=== PATIENT | female | born 1955 | race Caucasian/White ===

== ENCOUNTER → 2017-06-07 | Outpatient (CLI) | payer OTHER ==
[~2017-06-07] MED LIST: ASPI325T PO; BUTA1CAP PO; COMMODE 3-IN-11 MIS; COQ-100C5 PO; DULC100C PO; ENOX40P SQ; FERR1TAB52 PO; GABA100C4 PO; GAVICHW CHEW; IMIT100T PO; LEVO50TA4 PO; LUTE40CA2 PO; MELA1TAB18 PO; NORC5TAB PO; PANT20TA2 PO; RANI150T PO; VENL75TA PO; WALKER WHEELS/F1 MIS
== END ==
LOC: CPRE 09:22
PROVIDERS: ATTEND Orthopaedic Surgery
DX: M16.12 Unilateral primary osteoarthritis, left hip (principal)

== ENCOUNTER 2017-06-12 07:00 | Inpatient (IN) | payer OTHER ==
[~2017-06-12] VITALS: Ht 154.9 cm; Wt 58.9 kg
[~2017-06-12 07:00] MED LIST changes: -ASPI325T PO; -BUTA1CAP PO; -COMMODE 3-IN-11 MIS; -ENOX40P SQ; -GAVICHW CHEW; -IMIT100T PO; -NORC5TAB PO; -RANI150T PO; -WALKER WHEELS/F1 MIS
[2017-06-19] MEDS ORDERED: LACTATED RINGER'S 1000 ML IV PRN (10:30)
[2017-06-19] MEDS ORDERED: SODIUM CHLORID 0.9% 500 ML IV PRN (10:30)
[2017-06-19] MEDS ORDERED: METOPROLOL TARTRATE 25 MG TAB PO PRN (10:30)
[2017-06-19] MEDS ORDERED: INSULIN HUMAN REGULAR 1,000 UNITS/10 ML VIAL SQ PRN (10:30)
[2017-06-19] MEDS ORDERED: POVIDONE IODINE 5% (ANTISEPSIS KIT) 4 APPLICATIONS EACH NARE PRN (10:30)
[2017-06-19] MEDS ORDERED: CHLORHEXIDINE GLUCONATE 2 % 1 PACK (2 CLOTHS) TOPICAL PRN (10:30)
[2017-06-19] MEDS ORDERED: VANCOMYCIN 1000 MG/NS 250 ML (for <70 kg) IV SCH ×2 (10:45)
[2017-06-19] MEDS ORDERED: ceFAZolin 2 GM PREMIX 50 ML IV SCH (10:45)
[2017-06-19] MEDS ORDERED: DEXAMETHASONE SOD PHOS 20 MG/5 ML VIAL IV SCH (10:45)
[2017-06-19] MEDS ORDERED: CHLORHEXIDINE GLUCONATE 4% SOLN 120 ML BTL TOPICAL SCH (10:45)
[2017-06-19] MEDS ORDERED: GAVICHW CHEW (10:56)
[2017-06-19] MEDS ORDERED: BUTA1CAP PO (10:56)
[2017-06-19] MEDS ORDERED: RANI150T PO (10:56)
[2017-06-19] MEDS ORDERED: IMIT100T PO (10:56)
[2017-06-19] MEDS ORDERED: PHENYLEPHRINE HCL 10 MG/ML VIAL IV ONE (12:00)
[2017-06-19] MEDS ORDERED: SODIUM CHLORIDE 0.9% IV SCH ×2 (12:00→16:00)
[2017-06-19] MEDS ORDERED: NEOSTIGMINE 3 MG/3 ML SYR IV ONE (12:00)
[2017-06-19] MEDS ORDERED: GLYCOPYRROLATE 1 MG/5 ML SYRINGE IV PUSH ONE (12:00)
[2017-06-19] MEDS ORDERED: LIDOCAINE HCL 1% PF 5 ML AMPULE OTHER ONE (12:00)
[2017-06-19] MEDS ORDERED: ePHEDrine/NS 25 MG/5 ML SYR IV ONE (12:00)
[2017-06-19] MEDS ORDERED: MIDAZOLAM HCL 2 MG/2 ML VIAL IV ONE (12:00)
[2017-06-19] MEDS ORDERED: TRANEXAMIC ACID IV SCH ×2 (12:00→16:00)
[2017-06-19] MEDS ORDERED: EXPAREL PERI-ARTICULAR INJECTION (TOTAL VOL. 60 ML) P-ARTICULR SCH ×2 (12:00)
[2017-06-19] MEDS ORDERED: PHENYLEPH/NS 1000 MCG/10 ML SYR IV ONE (12:00)
[2017-06-19] MEDS ORDERED: ROCURONIUM INJ 50 MG/5 ML SYRINGE IV PUSH ONE (12:00)
[2017-06-19] MEDS ORDERED: GENTAMICIN SULFATE 80 MG/2 ML VIAL ONE (12:14)
[2017-06-19] MEDS ORDERED: ACETAMINOPHEN 1000 MG/100 ML 100 ML IV ONE (12:46)
--- NOTE | 2017-06-19 15:11 | PD.OP ---
cc: Alfonso Salcedo MD Operative Report Date of Surgery: Jun 19, 2017 Preoperative Diagnosis: Left hip severe osteoarthritis Postoperative Diagnosis: Same Procedure: Left total hip arthroplasty Anesthesia: Gen. Surgeon: Alfonso Salcedo Product Test Engineer(s): REGIS Valerio The surgical procedure was assisted by my Advanced Registered Nurse Practitioner. My JIGGER CROWN POUNCING MACHINE OPERATOR presence was necessary throughout this case for the manipulation and positioning of the surgical extremity. My JIGGER CROWN POUNCING MACHINE OPERATOR was assisting me throughout the duration of this procedure. The skill set of an Advance Registered Nurse Practitioner was medically necessary to complete this procedure. During the surgical case, the surgical endoscopist was working at the back table and the Advance Registered Nurse Practitioner was directly assisting me. Operation and Findings: IMPLANT DESCRIPTION: 1. [place] Gription Cup, acetabular size 48. 2. [place] AltrX polyethylene, neutral. 4. [place] femoral stem size 8, no collar, standard offset. 5. Femoral head/neck ceramic, 32, +1. ESTIMATED BLOOD LOSS: 300 cc. JUSTIFICATION FOR PROCEDURE: The patient has end-stage osteoarthritis to the hip. There is an attached conservative measures pathway form in the chart that describes the nonoperative measures that were undertaken prior to consideration of surgical management. The patient understood the risks and benefits of surgical management. See my office notes for further details. PROCEDURE: The patient was brought back to the operative theatre. Adequate anesthesia was obtained. The patient received intravenous vancomycin and Ancef. The patient was carefully placed on the operative table. The lower extremity was prepped and draped in the usual sterile fashion. Fluoroscopic images were obtained. We made a standard anterior incision over the hip. We dissected through the TFL fascia, exposing the anterior capsule. Arthrotomy was performed in a T-shaped fashion. The capsule was tagged with a #2 FiberWire. End-stage arthritis was identified. Osteotomy was performed through the femoral neck exposing the acetabulum. Remnants of the labrum were resected and osteophytes were removed. We sequentially reamed the acetabulum. We trialed the hip and placed the final cup into position. This was done under fluoroscopic guidance to obtain the appropriate inclination and anteversion. A manhole cover was placed into the acetabular component. We used a 3 hole cup. However, when we placed the cup in to position it had excellent purchase and we decided not to place screws. We then placed the final polyethylene into position and confirmed that it was well seated. Capsular attachments on the calcar and the inner aspect of the greater trochanter were resected. On the proximal aspect of the femur we used a rongeur , box osteotome, canal finder, sequential broaches and lateralizing rasp. We calcar planed the proximal femur. We found proximally it was very tight including narrowing of the medial to lateral witdth. This was treated with further curettage proximally. There also was tightness distally by the end of the stem. We decided to place a ball-tipped guidewire distally and we sequentially reamed ultimately going up to a 9-1/2 reamer. This gave us very good positioning for the trial. We did calcar planed again. Then thoroughly irrigated the wound. We trialed the hip with the appropriate size stem. We placed the final stem in to position and trialed again. The hip was stable while it was externally rotated 70 degrees when the leg was lowered to the floor. The final head was applied, and final fluoroscopic images were obtained. The wound was thoroughly irrigated again. Interarticular injection of liposomal bupivacaine was given. The capsule was closed with #2 FiberWire and #1 Vicryl. The deep fascia was closed with a #2 Stratafix, followed by 2-0 Vicryl in the skin with a Dermabond dressing. Postop plan is to weight-bear as tolerated. DVT prophylaxis will be performed with Brennen, JENN ragland, early mobilization, and Lovenox followed by aspirin. Alfonso Salcedo MD Jun 19, 2017 15:11
[2017-06-19] MEDS ORDERED: ENOX40P SQ (15:13)
[2017-06-19] MEDS ORDERED: ASPI325T PO (15:13)
[2017-06-19] MEDS ORDERED: NORC5TAB PO (15:13)
[2017-06-19] MEDS ORDERED: NALOXONE HCL 0.4 MG/ML AMP IV PRN (15:15)
[2017-06-19] MEDS ORDERED: ALUMINUM/MAGNESIUM/SIMETH 30 ML CUP PO PRN (15:15)
[2017-06-19] MEDS ORDERED: Post-op Orders (for Pharmacy) MISC XX ONE (15:15)
[2017-06-19] MEDS ORDERED: SODIUM CHLORIDE 0.9% FLUSH 5 ML FLUSH IVF PRN (15:15)
[2017-06-19] MEDS ORDERED: MAGNESIUM HYDROXIDE SUSP 30 ML CUP PO PRN (15:15)
[2017-06-19] MEDS ORDERED: MORPHINE SULFATE 4 MG/ML INJ IV PUSH PRN (15:15)
[2017-06-19] MEDS ORDERED: diphenhydrAMINE HCL 50 MG/ML VIAL IV PRN (15:15)
[2017-06-19] MEDS ORDERED: BISACODYL 10 MG SUPP RECTAL PRN (15:15)
[2017-06-19] MEDS: SODIUM CHLOR 0.9% 1000 ML INJ 1,000 ML IV SCH ×2 (15:30→22:42)
[2017-06-19] MEDS ORDERED: DO NOT ADM ANY ANTICOAGULANT DRUGS PRN (15:31)
--- NOTE | 2017-06-19 15:45 | HHI.DCPOC ---
Discharge Care Plan Diagnosis: (1) Osteoarthritis of left hip (2) Status post total hip replacement, left Your Health Problems Are: Difficulty with ADL Goals to Promote Your Health * To prevent worsening of your condition and complications * To maintain your health at the optimal level Directions to Meet Your Goals Take your medications as prescribed Follow your dietary instruction Follow activity as directed Keep your appointments as scheduled Take your immunizations and boosters as scheduled If your symptoms worsen call your PCP, if no PCP go to Urgent Care Center or Emergency Room Smoking is Dangerous to Your Health. Avoid second hand smoke Call the 24-hour hour crisis hotline for domestic abuse at Mychal Alcala Jun 19, 2017 15:45
--- NOTE | 2017-06-19 15:47 | HHI.FF ---
Face to Face Verification Diagnosis: (1) Osteoarthritis of left hip (2) Status post total hip replacement, left Physical Therapy Gait training, Transfer training, bed to chair Hip: Total hip Right LE Weight Bearing: WB as tolerated Right LE Range of Motion: Active ROM Nursing Nursing: Jayshree teaching, Dressing changes Dressing Changes: Daily dressing change I have seen patient Olivia Santizo on 06/19/17. My clinical findings support the need for the requested home health care services because: Limited ability to care for self High risk of falls I certify that my clinical findings support that this patient is homebound because: Post-op weakness Unsteady gait/balance Mychal Alcala Jun 19, 2017 15:47
--- NOTE | 2017-06-19 15:47 | RADRPT ---
EXAM DATE/TIME: 06/19/2017 13:43 [facility] COMPARISON: No previous studies available for comparison. INDICATIONS : ORIF lt hip. MEDICAL HISTORY : None. SURGICAL HISTORY : None. ENCOUNTER: Initial ACUITY: 1 day PAIN SCORE: Non-responsive. LOCATION: Left Hip CONCLUSION: Fluoroscopic images during left hip arthroplasty. Jasmhid Lee MD on June 19, 2017 at 15:45 Board Certified Radiologist. This report was verified electronically.
[2017-06-19] MEDS ORDERED: COMMODE 3-IN-11 MIS (15:49)
[2017-06-19] MEDS ORDERED: WALKER WHEELS/F1 MIS (15:49)
[2017-06-19] MEDS ORDERED: *ONDANSETRON 4 MG VIAL PERIprocedural Use ONLY ONE (15:53)
--- NOTE | 2017-06-19 16:08 | PD.CONS ---
HPI Service [facility] Hospitalists Consult Requested By Primary Care Physician Valdemar Boogie MD, PhD Diagnoses: History of Present Illness Pt with OA admitted for Left JONE. She is seen in [facility] and stable from cardiopulmonary standpoint. She is awake and alert and following commands. She is having alot of nausea currently and is receiving some medications. She is otherwise not complaining of anything. Denies any cardiac or pulmonary disease processes. Review of Systems Other nausea Past Family Social History Past Medical History migraine gerd hypothyroidism OA depression. hx lap katharina Reported Medications Gaviscon (Aluminum Hydroxide-Mag Trisil) 80-14.2 mg Chew 2-4 Tab CHEW QID PRN Maximum 16 tabs/24 hrs Ranitidine (Ranitidine HCl) 150 Mg Tab 150 Mg PO DAILY Imitrex (Sumatriptan Succinate) 100 Mg Tab 100 Mg PO ONCE PRN If a satisfactory response has not been obtained at 2 hours, a second dose may be administered Fioricet (Qurdsqqxop-Ytojsthfyggxb-Hqhrswvt) 50-300-40 Mg Cap 1 Cap PO Q4H PRN Melatonin 10 Mg-1 Mg Tab 10 Mg PO HS PRN Gabapentin 100 Mg Cap 100 Mg PO HS Dulcolax Stool Softener (Docusate Sodium) 100 Mg Cap 300 Mg PO DAILY Lutein 40 Mg Cap 40 Mg PO DAILY Coq-10 Tr (Coenzyme Q10 (Ubidecarenone)) 100 Mg Cap 200 Mg PO DAILY Iron High-Potency (Ferrous Sulfate) 325 Mg (65 Mg Iron) Tab 65 Mg PO 3XWEEK Effexor (Venlafaxine HCl) 75 Mg Tab 75 Mg PO DAILY Levothyroxine (Levothyroxine Sodium) 50 Mcg Tab 50 Mcg PO DAILY Pantoprazole (Pantoprazole Sodium) 20 Mg Tab 20 Mg PO DAILY Allergies: Coded Allergies: iodine (Verified Allergy, Severe, swollen, 06/07/17) prednisone (Verified Allergy, Severe, rash, 06/07/17) povidone-iodine (Verified Allergy, Unknown, swelling and rash, 06/19/17) soap (Verified Allergy, Unknown, swelling and rash, 06/19/17) Family History NC Social History no etoh/tob Physical Exam Vital Signs nad oriented lying in pacu bed heart reg lung cta abds s/nt ext no lower ext edema Vital Signs Date Time Temp Pulse Resp B/P (MAP) Pulse Ox O2 Delivery O2 Flow Rate FiO2 06/19/17 11:00 98.7 73 18 116/68 (84) 100 Assessment and Plan Problem List: (1) Status post total hip replacement, left ICD Codes: Z96.642 - Presence of left artificial hip joint Status: Acute Plan: Pt s/p L JONE today 06/19 for OA Only c/o post op nausea. Currently stable from cardiopulmonary standpt. lovenox for dvt prophylaxis prn pain control with iv morphine and norco IS PT daily cont home medications pt says she wants to go home with hhc/pt at d/c (2) GERD (gastroesophageal reflux disease) ICD Codes: K21.9 - Gastro-esophageal reflux disease without esophagitis Status: Chronic (3) Hypothyroidism ICD Codes: E03.9 - Hypothyroidism, unspecified Status: Chronic (4) Depressed ICD Codes: F32.9 - Major depressive disorder, single episode, unspecified Status: Chronic Nabil Llamas MD Jun 19, 2017 16:08
--- NOTE | 2017-06-19 16:10 | RADRPT ---
EXAM DATE/TIME: 06/19/2017 15:27 [facility] COMPARISON: No previous studies available for comparison. INDICATIONS : Status post ORIF lt hip. MEDICAL HISTORY : None. SURGICAL HISTORY : None. ENCOUNTER: Subsequent ACUITY: 1 day PAIN SCORE: Non-responsive. LOCATION: Left Hip FINDINGS: Examination of the left hip was performed with AP Pelvis. Left total hip arthroplasty. Both the femor al and acetabular components are appropriately positioned. No fracture. CONCLUSION: Appropriate postoperative appearance of the left hip status post total arthroplasty. Héctor Barone MD on June 19, 2017 at 16:08 Board Certified Radiologist. This report was verified electronically.
[2017-06-19] MEDS ORDERED: *morphine SULFATE 8 MG/ML PERIprocedure ONLY ONE (16:25)
[2017-06-19] MEDS ORDERED: FIORICET PO PRN (16:30)
[2017-06-19] MEDS ORDERED: FERROUS SULFATE 325 MG (65 MG ELEMENTAL IRON) TAB PO SCH (18:00)
[2017-06-19 19:00] VITALS: BP 92/63; PULSE 72; RESP 12; TEMP 96.9; O2SAT 100
[2017-06-19] MEDS: GABAPENTIN 100 MG CAP PO SCH (20:13)
[2017-06-19] MEDS: SODIUM CHLORIDE 0.9% FLUSH 5 ML FLUSH IVF SCH (20:14)
[2017-06-19 20:37] VITALS: O2SAT 98
[2017-06-19] MEDS ORDERED: ZOLPIDEM TARTRATE 5 MG TAB PO PRN (21:00)
[2017-06-19] MEDS: ACETAMINOPHEN/HYDROcodone 325 MG/5 MG TAB PO PRN (21:01)
[2017-06-19] MEDS: ONDANSETRON HCL 4 MG/2 ML VIAL IVP PRN (22:42)
[2017-06-20] MEDS: SODIUM CHLOR 0.9% 1000 ML INJ 1,000 ML IV SCH ×2 (02:44→19:34)
[2017-06-20] MEDS: ACETAMINOPHEN/HYDROcodone 325 MG/5 MG TAB PO PRN ×4 (02:58→21:31)
[2017-06-20] MEDS: LEVOTHYROXINE SODIUM 50 MCG TAB PO SCH (05:09)
[2017-06-20] MEDS: ONDANSETRON HCL 4 MG/2 ML VIAL IVP PRN ×2 (05:10→11:39)
[2017-06-20 07:06] LABS: HEMATOCRIT 29.9 % (35.0-46.0); MEAN CELL VOLUME 95.1 FL (80.0-100.0); MEAN CORPUSCULAR HEMOGLOBIN 32.6 PG (27.0-34.0); MEAN CORPUSCULAR HGB CONC 34.3 % (32.0-36.0); PLATELET COUNT 122 TH/MM3 (150-450); RED BLOOD COUNT 3.14 MIL/MM3 (4.00-5.30); REVIEW FLAG FINAL; WHITE BLOOD COUNT 11.2 TH/MM3 (4.0-11.0)
[2017-06-20 07:37] VITALS: BP 97/48; PULSE 91; RESP 18; TEMP 98; O2SAT 99
[2017-06-20] MEDS ORDERED: DEXAMETHASONE SOD PHOS 20 MG/5 ML VIAL IV ONE (07:45)
[2017-06-20] MEDS: VENLAFAXINE HCL XR 75 MG CAP PO SCH (08:57)
[2017-06-20] MEDS: FAMOTIDINE 20 MG TAB PO SCH ×2 (08:58→19:34)
[2017-06-20] MEDS: PANTOPRAZOLE SOD 20 MG DELAYED RELEASE TAB PO SCH (09:00)
[2017-06-20] MEDS: SODIUM CHLORIDE 0.9% FLUSH 5 ML FLUSH IVF SCH ×2 (09:00→19:34)
[2017-06-20] MEDS: SUMAtriptan SUCCINATE 50 MG TAB PO PRN (09:08)
[2017-06-20 12:00] VITALS: BP 112/49; PULSE 98; RESP 18; TEMP 97.8; O2SAT 100
--- NOTE | 2017-06-20 12:01 | PD.ORT.PN ---
Subjective Post Op Day #: 1 Subjective Remarks Patient resting in bed with c/o severe Migraine. Patient has been nauseated and unable to ambulate secondary to her head pain. Requesting another dose of Migraine medication. Objective Vitals Vital Signs Date Time Temp Pulse Resp B/P (MAP) Pulse Ox O2 Delivery O2 Flow Rate FiO2 06/20/17 07:37 98.0 91 18 97/48 (64) 99 06/19/17 20:37 98 21 06/19/17 19:00 96.9 72 12 92/63 (73) 100 06/19/17 17:45 98.3 72 14 104/51 (68) 98 Room Air 06/19/17 16:45 71 14 108/51 (70) 100 Nasal Cannula 2 06/19/17 16:30 65 14 100/52 (68) 100 Nasal Cannula 3 06/19/17 16:15 61 14 99/55 (70) 99 Nasal Cannula 3 06/19/17 16:00 70 14 93/54 (67) 98 Nasal Cannula 3 06/19/17 15:45 72 14 105/54 (71) 98 Nasal Cannula 3 06/19/17 15:30 98.4 81 14 114/54 (74) 97 Nasal Cannula 3 I/O 06/19/17 06/19/17 06/19/17 06/20/17 06/20/17 06/20/17 07:00 15:00 23:00 07:00 15:00 23:00 Intake Total 50 ml 1700 ml 1690 ml Output Total 250 ml Balance 50 ml 1450 ml 1690 ml Intake Oral 290 ml IV Total 50 ml 200 ml 1400 ml Other 1500 ml Output Estimated Blood Loss 250 ml # Voids 2 # Bowel Movements 0 Result Diagram: 06/20/17 0616 Imaging Last 24 hours Impressions Hip and Pelvis X-Ray 06/19/17 1505 Signed Impressions: Service Date/Time: Monday, June 19, 2017 15:27 - CONCLUSION: Appropriate postoperative appearance of the left hip status post total arthroplasty. Héctor Barone MD Procedures Left JONE Objective Remarks Dressings changed with no drainage. Incision is well approximated. No redness or s/s of infection. Calf is soft and nontender. EHL/TA/G intact. 2+ pedal pulse. + SILT. Assessment & Plan Ortho Post Op Day #: 1 Problem List: Assessment and Plan POD #1: Left JONE 1. WBAT LLE 2. Lovenox followed by ASA for DVT prophylaxis 3. Ice to the left hip PRN 4. Anticipatory discharge home with home health on Saturday 5. F/U with Dr. Salcedo or REGIS Zaidi 6. 2nd dose of Immitrex for current Migraine. Mychal Alcala Jun 20, 2017 12:01
[2017-06-20] MEDS ORDERED: SUMAtriptan SUCCINATE 50 MG TAB PO ONE (12:15)
[2017-06-20] MEDS ORDERED: ENOXAPARIN SODIUM 40 MG/0.4 ML SYRINGE SQ SCH (14:30)
[2017-06-20 15:32] VITALS: BP 99/44; PULSE 87; RESP 18; TEMP 99.1; O2SAT 98
[2017-06-20 19:00] VITALS: BP 102/59; PULSE 75; RESP 17; TEMP 98.5; O2SAT 94
[2017-06-20] MEDS: GABAPENTIN 100 MG CAP PO SCH (19:34)
[2017-06-20] MEDS: DOCUSATE SODIUM 100 MG CAP PO SCH (19:34)
[2017-06-20] MEDS: MULTIVITAMINS/MINERALS THERAPEUTIC TAB PO SCH (19:34)
[2017-06-20 19:40] VITALS: O2SAT 98
[2017-06-21] VITALS: BP 93/50; PULSE 93; RESP 17; TEMP 98.5; O2SAT 97
[2017-06-21] MEDS: ACETAMINOPHEN/HYDROcodone 325 MG/5 MG TAB PO PRN ×2 (03:21→07:54)
[2017-06-21 04:00] VITALS: BP 93/48; PULSE 93; RESP 16; TEMP 98.5; O2SAT 98
[2017-06-21] MEDS: SUMAtriptan SUCCINATE 50 MG TAB PO PRN (04:59)
[2017-06-21] MEDS: LEVOTHYROXINE SODIUM 50 MCG TAB PO SCH (06:00)
[2017-06-21 06:19] LABS: HEMATOCRIT 27.7 % (35.0-46.0); MEAN CORPUSCULAR HEMOGLOBIN 32.6 PG (27.0-34.0); MEAN CORPUSCULAR HGB CONC 34.3 % (32.0-36.0); PLATELET COUNT 106 TH/MM3 (150-450); RED BLOOD COUNT 2.92 MIL/MM3 (4.00-5.30); RED CELL DISTRIBUTION WIDTH 12.8 % (11.6-17.2); REVIEW FLAG FINAL
[2017-06-21] MEDS: SODIUM CHLOR 0.9% 1000 ML INJ 1,000 ML IV SCH (07:05)
[2017-06-21] MEDS: FAMOTIDINE 20 MG TAB PO SCH (07:54)
[2017-06-21] MEDS: DOCUSATE SODIUM 100 MG CAP PO SCH (07:54)
[2017-06-21] MEDS: PANTOPRAZOLE SOD 20 MG DELAYED RELEASE TAB PO SCH (07:54)
[2017-06-21] MEDS: MULTIVITAMINS/MINERALS THERAPEUTIC TAB PO SCH (07:54)
[2017-06-21] MEDS: VENLAFAXINE HCL XR 75 MG CAP PO SCH (07:55)
[2017-06-21] MEDS: SODIUM CHLORIDE 0.9% FLUSH 5 ML FLUSH IVF SCH (07:55)
[2017-06-21 08:00] VITALS: BP 95/49; PULSE 81; RESP 18; TEMP 96.5; O2SAT 97
[2017-06-21 08:56] VITALS: RESP 16
[2017-06-21 09:20] VITALS: O2SAT 93
--- NOTE | 2017-06-25 17:41 | HHI.DS ---
Discharge Summary Admission Date Jun 19, 2017 at 09:58 Discharge Date: Jun 21, 2017 Admitting Diagnosis OA of the left hip Status post total hip replacement, left Diagnosis: (1) Status post total hip replacement, left Diagnosis: Principal ICD Codes: Z96.642 - Presence of left artificial hip joint Status: Acute (2) Osteoarthritis of left hip Diagnosis: Principal ICD Codes: M16.12 - Unilateral primary osteoarthritis, left hip Procedures Left JONE Brief History This is a 61 year old female patient with severe OA of the left hip CBC/BMP: 06/21/17 0551 PE at Discharge Dressings changed with no drainage. Incision is well approximated. No redness or s/s of infection. Calf is soft and nontender. EHL/TA/G intact. 2+ pedal pulse. + SILT. Hospital Course The patient was admitted to the hospital for severe OA of the left hip to have a left JONE. The patient's surgery went well without complication. The patient is WBAT on the LLE. The patient is on a regular diet. The patient was placed on Lovenox followed by ASA for DVT prophylaxis. The patient was discharged home with home health and will f/u in the office in 1-[address] Salcedo or REGIS Zaidi. Pt Condition on Discharge: Stable Discharge Disposition: Disch w/ Home Health Serv Discharge Instructions Diet Instructions: As Tolerated, No Restrictions Activities You Can Perform: Weight Bearing as Keegan Activities to Avoid: Strenuous Activity Follow up Referrals: Orthopedics with Alfonso Salcedo MD [facility]/ with [facility] New Medications: Aspirin (Aspirin) 325 Mg Tab 325 MG PO DAILY for Prevent Blood Clot, #30 TAB 0 Refills Start Aspirin after Lovenox is completed. Commode 3-in-1 (Commode 3-in-1) 1 Mis Mis EA .ROUTE DIRECTED, #1 0 Refills Enoxaparin Inj (Lovenox Inj) 40 Mg/0.4 Ml Syr 40 MG SQ DAILY for Blood Clot Prevention, #10 SYRINGE 0 Refills Start Aspirin after Lovenox is completed. Hydrocodone-Acetaminophen (Garland) 5-325 mg Tab 1-2 TAB PO Q4H PRN for PAIN, #60 TAB 0 Refills Walker with Front Wheels (Walker with Front Wheels) 1 Mis Mis EA .ROUTE DIRECTED, #1 0 Refills Continued Medications: Aluminum Hydroxide-Mag Trisil (Gaviscon) 80-14.2 mg Chew 2-4 TAB CHEW QID PRN for HEARTBURN, TAB 0 Refills Maximum 16 tabs/24 hrs Vsvqhhagjx-Adkwsujkcgyrp-Mpfzxeif (Fioricet) 50-300-40 Mg Cap 1 CAP PO Q4H PRN for HEADACHE, CAP 0 Refills Docusate Sodium (Dulcolax Stool Softener) 100 Mg Cap 300 MG PO DAILY for Prevent Constipation, #60 CAP 0 Refills Ferrous Sulfate (Iron High-Potency) 325 Mg (65 Mg Iron) Tab 65 MG PO 3XWEEK Gabapentin (Gabapentin) 100 Mg Cap 100 MG PO HS, #30 CAP 0 Refills Levothyroxine (Levothyroxine) 50 Mcg Tab 50 MCG PO DAILY for Thyroid, #30 TAB 0 Refills Lutein (Lutein) 40 Mg Cap 40 MG PO DAILY for Nutritional Supplement, CAP 0 Refills Melatonin (Melatonin) 10 Mg-1 Mg Tab 10 MG PO HS PRN for SLEEP, TAB 0 Refills Pantoprazole (Pantoprazole) 20 Mg Tab 20 MG PO DAILY for Reflux, #30 TAB 0 Refills Ranitidine (Ranitidine) 150 Mg Tab 150 MG PO DAILY for Heartburn Management, #30 TAB 0 Refills Sumatriptan (Imitrex) 100 Mg Tab 100 MG PO ONCE PRN for MIGRAINE HEADACHE, TAB 0 Refills If a satisfactory response has not been obtained at 2 hours, a second dose may be administered Venlafaxine (Effexor) 75 Mg Tab 75 MG PO DAILY, #30 TAB 0 Refills Discontinued Medications: Coenzyme Q10 (Ubidecarenone) (Coq-10 Tr) 100 Mg Cap 200 MG PO DAILY Mychal Alcala Jun 25, 2017 17:40
== END 2017-06-21 12:29 | disposition home health service (06) | DRG 470 ==
LOC: HSDI 06-19 09:58 → N06A 06-19 18:07
PROVIDERS: ADMIT Orthopaedic Surgery; ATTEND Orthopaedic Surgery
PROC: 0SRB04A Replacement of Left Hip Joint with Ceramic on Polyethylene Synthetic Substitute, Uncemented, Open Approach (ICD-10-PCS; principal; 2017-06-19 12:49)
DX: M16.12 Unilateral primary osteoarthritis, left hip (principal); R11.0 Nausea; G43.909 Migraine, unspecified, not intractable, without status migrainosus; F32.9 Major depressive disorder, single episode, unspecified; E03.9 Hypothyroidism, unspecified; K21.9 Gastro-esophageal reflux disease without esophagitis
CPT/HCPCS: 36415; 73502; 76000; 85027; 85610; 86850; 86900; 86901; 94150; C1713; C1776; C9290; J0131; J0690; J1100; J1580; J1650; J2250; J2270; J2370; J2405; J2710; J3010; J3370; J7030; J7050; J7120

== ENCOUNTER → 2017-06-18 | Outpatient (CLI) | payer OTHER ==
[~2017-06-18] MED LIST changes: +ASPI325T PO; +BUTA1CAP PO; +COMMODE 3-IN-11 MIS; +ENOX40P SQ; +GAVICHW CHEW; +IMIT100T PO; +NORC5TAB PO; +RANI150T PO; +WALKER WHEELS/F1 MIS
[2017-06-18 12:31] LABS: PROTHROMBIN TIME - PATIENT 10.7 SEC (9.8-11.6)
== END ==
LOC: CPRE 11:59
PROVIDERS: ATTEND Orthopaedic Surgery
DX: R79.1 Abnormal coagulation profile (principal)
CPT/HCPCS: 36415; 85610